=== PATIENT | female | born 1960 | race Caucasian/White ===

== ENCOUNTER 2016-02-29 06:59 | Day surgery (SDC) | payer BC ==
[2016-02-29] MEDS ORDERED: DEXAMETHASONE PRESERVATIVE FREE 10MG/ML VIAL IV ONE (09:39)
[2016-02-29] MEDS ORDERED: BUPIVACAINE 0.25% MPF 30ML VIAL IVP ONE (09:39)
[2016-02-29] MEDS ORDERED: LIDOCAINE 1% W/EPI 1:200,000 MPF 30ML SQ ONE (09:39)
[2016-02-29] MEDS ORDERED: BUPIVACAINE 0.5% W/EPI MPF 30 ML VIAL IVP ONE (09:39)
[2016-02-29] MEDS ORDERED: FENTANYL PF 100MCG/2ML VIAL IV ONE (13:19)
[2016-02-29] MEDS ORDERED: MIDAZOLAM HCL 2MG/2ML VIAL IV ONE (13:19)
[2016-02-29] MEDS ORDERED: PROPOFOL 10 MG/ML VIAL IV ONE (13:19)
[2016-02-29] MEDS ORDERED: LIDOCAINE 2% MDV (20MG/ML) 20ML VIAL IV ONE (13:19)
[2016-02-29] MEDS ORDERED: KETAMINE HCL 10 MG/ML (20ML) VIAL *PACU IV ONE (13:19)
--- NOTE | 2016-02-29 15:55 | Operative Note ---
PAIN SERVICE OPERATIVE REPORT DATE OF PROCEDURE: 02/29/2016. SURGEON: Freddie Ferguson D.O. PREOPERATIVE DIAGNOSIS: LUMBAR RADICULITIS, ICD10 CODE M54.16 AND M54.17. PROCEDURE: Fluoroscopically guided bilateral lumbar epidural injection at L4-5. ANESTHESIA: Local sedation. ANESTHESIA PROVIDER: Rl Zapata CRNA. INDICATIONS: This patient presents with pain which is back and legs. Examination showed tenderness in the lumbar spine. Range of motion causes pain to the outside and front of both legs. Diagnostics show both a 4-5 and 5-1 disc , but 4-5 would seem to be the pattern of pain. DESCRIPTION OF PROCEDURE: Intravenous line, vital sign monitoring, intravenous sedation. Prepped and draped with sterile technique. Under imaging, the epidural interspace at L4-5 was marked. The skin was infiltrated. Two separate 17-gauge, 6-inch Tuohy needles, one left and one right of midline. Contrast epidurogram showed flow characteristics equal and extensive on the left and then equal flow characteristics and extensive right. A total of 5.0 mL of 0.125% Marcaine with dexamethasone was injected, first left and then right. Both needles were removed. The back was cleaned, topical antibiotic and sterile dressing were applied. We will monitor and evaluate. Freddie Ferguson D.O. Date Time JOB NUMBER: [id number] cc: Dr. Rao GAVIN
== END 2016-02-29 08:56 | disposition home or self-care (01) ==
LOC: SUR 06:59
PROVIDERS: ATTEND Pain Medicine Interventional Pain Medicine
DX: M54.16 Radiculopathy, lumbar region (principal); M54.17 Radiculopathy, lumbosacral region; E03.9 Hypothyroidism, unspecified; I10 Essential (primary) hypertension; D64.9 Anemia, unspecified
CPT/HCPCS: 62322; 01992; Q9967; J1100; J3010

== ENCOUNTER 2016-04-25 07:03 | Day surgery (SDC) | payer BC ==
[2016-04-25] MEDS ORDERED: BUPIVACAINE 0.5% W/EPI MPF 30 ML VIAL IVP ONE (11:16)
[2016-04-25] MEDS ORDERED: DEXAMETHASONE PRESERVATIVE FREE 10MG/ML VIAL IV ONE (11:16)
[2016-04-25] MEDS ORDERED: LIDOCAINE 1% W/EPI 1:200,000 MPF 30ML SQ ONE (11:16)
[2016-04-25] MEDS ORDERED: 0.9 % SODIUM CHLORIDE 100ML BAG IV ONE (11:16)
[2016-04-25] MEDS ORDERED: BUPIVACAINE 0.25% MPF 30ML VIAL IVP ONE (11:16)
[2016-04-25] MEDS ORDERED: MIDAZOLAM HCL 2MG/2ML VIAL IV ONE (14:00)
[2016-04-25] MEDS ORDERED: FENTANYL PF 100MCG/2ML VIAL IV ONE (14:00)
[2016-04-25] MEDS ORDERED: PROPOFOL 10 MG/ML VIAL IV ONE (14:00)
[2016-04-25] MEDS ORDERED: LIDOCAINE 2% MDV (20MG/ML) 20ML VIAL IV ONE (14:00)
--- NOTE | 2016-05-01 18:10 | Operative Note ---
Dictator requests prior report to have copies sent to Dr. Rao Mejias. DO ROMAINE Julio
--- NOTE | 2016-05-03 18:50 | Operative Note ---
DATE OF SURGERY: 04/25/2016 PREOPERATIVE DIAGNOSIS: Lumbar radiculitis, ICD10 code M54.16, M54.17. OPERATION: Fluoroscopic-guided bilateral lumbar epidural injection at L4-5 with epidural. Indication: This patient presents with pain which is bilateral low back, hip, and leg. Her diagnostics do show a 4-5 and a 5-1 disk. The current pattern reflects the 4-5 surgery. PROCEDURE: Intravenous line, vital sign monitoring, IV sedation by Anesthesia. The patient positioned prone. Sterile prep, sterile technique. Under imaging, the epidural interspace at L4-5 marked bilaterally. Skin infiltrated. Two separate 17 gauge Tuohy needles with loss of resistance, one left and one at midline, 5 mL plain with 0.25% Marcaine dexamethasone injected. Needle removed. Back cleaned. Topical on buttocks. Sterile dressing applied. We will monitor and evaluate. Freddie Ferguson DO CC: Dr. Nicole GAVIN
== END 2016-04-25 09:00 | disposition home or self-care (01) ==
LOC: SUR 07:03
PROVIDERS: ATTEND Pain Medicine Interventional Pain Medicine
DX: M54.16 Radiculopathy, lumbar region (principal); M54.17 Radiculopathy, lumbosacral region; I10 Essential (primary) hypertension; E03.9 Hypothyroidism, unspecified
CPT/HCPCS: 62323; 01992; Q9967; J1100; J3010

== ENCOUNTER 2017-01-30 07:35 | Day surgery (SDC) | payer BC ==
[2017-01-30] MEDS ORDERED: MIDAZOLAM HCL 2MG/2ML VIAL IV ONE (07:36)
[2017-01-30] MEDS ORDERED: FENTANYL PF 100MCG/2ML VIAL IV ONE (07:36)
[2017-01-30] MEDS ORDERED: PROPOFOL 10 MG/ML VIAL IV ONE (07:36)
[2017-01-30] MEDS ORDERED: LIDOCAINE 1% W/EPI 1:200,000 MPF 30ML SQ ONE (07:36)
[2017-01-30] MEDS ORDERED: 0.9 % SODIUM CHLORIDE 10 ML VIAL IVP ONE (07:36)
[2017-01-30] MEDS ORDERED: LIDOCAINE 2% MDV (20MG/ML) 20ML VIAL IV ONE (07:36)
[2017-01-30] MEDS ORDERED: BUPIVACAINE 0.25% MPF 30ML VIAL IVP ONE (07:36)
[2017-01-30] MEDS ORDERED: DEXAMETHASONE PRESERVATIVE FREE 10MG/ML VIAL IV ONE (07:36)
[2017-01-30] MEDS ORDERED: BUPIVACAINE 0.75% W/EPI MPF 30ML VIAL IVP ONE (07:36)
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
== END 2017-01-30 09:30 | disposition home or self-care (01) ==
LOC: SUR 07:35
PROVIDERS: ATTEND Pain Medicine Interventional Pain Medicine
DX: M54.16 Radiculopathy, lumbar region (principal); M54.17 Radiculopathy, lumbosacral region; E03.9 Hypothyroidism, unspecified; I10 Essential (primary) hypertension
CPT/HCPCS: 62323; 01936; J1100; J3010; J3490

== ENCOUNTER 2017-05-01 06:59 | Day surgery (SDC) | payer BC ==
[2017-05-01] MEDS ORDERED: LIDOCAINE 1% W/EPI 1:200,000 MPF 30ML SQ ONE (07:00)
[2017-05-01] MEDS ORDERED: BUPIVACAINE 0.5% W/EPI MPF 30 ML VIAL IVP ONE (07:00)
[2017-05-01] MEDS ORDERED: LIDOCAINE 2% MDV (20MG/ML) 20ML VIAL IV ONE (07:00)
[2017-05-01] MEDS ORDERED: MIDAZOLAM HCL 2MG/2ML VIAL IV ONE (07:00)
[2017-05-01] MEDS ORDERED: FENTANYL PF 100MCG/2ML VIAL IV ONE (07:00)
[2017-05-01] MEDS ORDERED: HYDROCODONE/APAP 7.5/325MG TABLET PO ONE (07:00)
[2017-05-01] MEDS ORDERED: DEXAMETHASONE PRESERVATIVE FREE 10MG/ML VIAL IV ONE (07:00)
[2017-05-01] MEDS ORDERED: BUPIVACAINE 0.25% MPF 30ML VIAL IVP ONE (07:00)
--- NOTE | 2017-05-01 19:26 | Operative Note - Ferro ---
DATE OF SURGERY: 05/01/17 PREOPERATIVE DIAGNOSIS: LUMBAR RADICULOPATHY, ICD-10 CODE = M54.16. SURGERY: FLUOROSCOPIC-GUIDED BILATERAL LUMBAR EPIDURAL INJECTION L4-5. SURGEON: BRUCE SOFIA D.O. ANESTHESIA: LOCAL SEDATION. ANESTHESIA PROVIDER: MARIA ALEJANDRA PETERS CRNA INDICATIONS: This patient presents with pain, which starts in the back but then extends into the hips and legs. The diagnostic studies do confirm disc abnormalities at both 4-5 and 5-1. The current pattern of pain appears to be more of 4-5. SURGERY: Intravenous line, vital sign monitoring, IV sedation, prepped and draped, sterile technique. Under imaging, the epidural interspace at L4-5 was marked and infiltrated. Two separate #17 gauge Tuohy needles, one left and one right of the midline. 5 mL of 0.125% Marcaine with Dexamethasone injected, first left and then right. Both needles removed. Back cleaned. Topical antibiotic. Sterile dressing applied. We will monitor and evaluate. cc: Dr. De La Cruz JOB NUMBER: [id number] MTDD
== END 2017-05-01 08:55 | disposition home or self-care (01) ==
LOC: SUR 06:59
PROVIDERS: ATTEND Pain Medicine Interventional Pain Medicine
DX: M54.16 Radiculopathy, lumbar region (principal); I10 Essential (primary) hypertension; D64.9 Anemia, unspecified
CPT/HCPCS: 62323; 01936; Q9967; J1100; J3010

== ENCOUNTER → 2017-12-04 | Day surgery (SDC) | payer BC ==
[~2017-12-04] MED LIST: 0.9 % SODIUM CHLORIDE 10 ML VIAL IVP ONE; BUPIVACAINE 0.25% W/EPI MPF 30ML VIAL IVP ONE; BUPIVACAINE 0.5% W/EPI MPF 30 ML VIAL IVP ONE; DEXAMETHASONE PRESERVATIVE FREE 10MG/ML VIAL IV ONE; FENTANYL PF 100MCG/2ML VIAL IV ONE; LIDOCAINE 1% W/EPI 1:200,000 MPF 30ML SQ ONE; LIDOCAINE 2% MDV (20MG/ML) 20ML VIAL IV ONE; MIDAZOLAM HCL 2MG/2ML VIAL IV ONE; OXYCODONE/APAP 10MG-325MG TABLET PO ONE; PROPOFOL 10 MG/ML VIAL IV ONE
--- NOTE | 2017-12-04 21:36 | Operative Note ---
DATE OF SURGERY: 12/04/2017 PREOPERATIVE DIAGNOSIS: LUMBAR RADICULOPATHY, ICD-10 CODE = M54.16 AND M54.17. SURGERY: FLUOROSCOPIC-GUIDED BILATERAL LUMBAR EPIDURAL INJECTION L4-5. SURGEON: BRUCE SOFIA D.O. PRIMARY CARE PHYSICIAN: DR. LYNNE CEDENO ANESTHESIA: LOCAL SEDATION. ANESTHESIA PROVIDER: RIO SIMON INDICATIONS: This patient presents with pain, which starts in the back but extends into the hips and legs bilaterally. Diagnostics show the discs at 4-5 and 5-1. SURGERY: Intravenous line, vital sign monitoring, IV sedation, prepped and draped, sterile technique. Consistent with the pattern of pain to the outer front surface of both legs, the epidural interspace at L4-5 marked, infiltrated. Two separate #18 gauge Tuohy needles, one left and one right of the midline. 5 mL of 0.125% Marcaine with Dexamethasone injected, first left then right. Both needles removed. Back cleaned. Topical antibiotic. Sterile dressing applied. We will monitor and evaluate. cc: Dr. Lynne Cedeno JOB NUMBER: [id number] MTDD
== END | disposition home or self-care (01) ==
LOC: SUR 06:51
PROVIDERS: ATTEND Pain Medicine Interventional Pain Medicine
DX: M54.16 Radiculopathy, lumbar region (principal); M54.17 Radiculopathy, lumbosacral region; E03.9 Hypothyroidism, unspecified
CPT/HCPCS: 62323; 01936; J1100; J3010

== ENCOUNTER 2018-02-12 06:21 | Day surgery (SDC) | payer BC ==
[2018-02-12] MEDS ORDERED: DEXAMETHASONE PRESERVATIVE FREE 10MG/ML VIAL IV ONE (06:22)
[2018-02-12] MEDS ORDERED: LIDOCAINE 1% W/EPI 1:200,000 MPF 30ML SQ ONE (06:22)
[2018-02-12] MEDS ORDERED: PROPOFOL 10 MG/ML VIAL IV ONE (06:22)
[2018-02-12] MEDS ORDERED: BUPIVACAINE 0.25% MPF 30ML VIAL IVP ONE (06:22)
[2018-02-12] MEDS ORDERED: MIDAZOLAM HCL 2MG/2ML VIAL IV ONE (06:22)
[2018-02-12] MEDS ORDERED: BUPIVACAINE 0.5% W/EPI MPF 30 ML VIAL IVP ONE (06:22)
[2018-02-12] MEDS ORDERED: 0.9 % SODIUM CHLORIDE 10 ML VIAL IVP ONE (06:22)
[2018-02-12] MEDS ORDERED: FENTANYL PF 100MCG/2ML VIAL IV ONE (06:22)
--- NOTE | 2018-02-12 12:21 | Operative Note ---
DATE OF SURGERY: 02/12/2018 PREOPERATIVE DIAGNOSIS: LUMBAR RADICULOPATHY, ICD-10 CODE = M54.16 AND M54.17. SURGERY: FLUOROSCOPIC-GUIDED BILATERAL LUMBAR EPIDURAL INJECTION L5-S1. SURGEON: BRUCE SOFIA D.O. ANESTHESIA: LOCAL SEDATION. RAVEN HUNTER CRNA. INDICATIONS: This patient presents with a history of pain, which is low back, hip and leg bilateral. Diagnostics do show diffuse disc abnormalities and spondylitic change at discs 4-5 and 5-1. The pattern of pain is 5-1. SURGERY: Intravenous line, vital sign monitoring, IV sedation, prepped and draped, sterile technique, under imaging, the epidural interspace at L5-S1 identified and marked bilaterally. Skin infiltrated. Two separate #17 gauge, five-inch Tuohy needles, one left and one right of the midline. 5 mL of 0.125% Marcaine with Dexamethasone injected. Needle removed. Back cleaned. Topical antibiotic. Sterile dressing was applied. We will monitor and evaluate. cc: Dr. Eliel Cedeno JOB NUMBER: [id number] MTDD
== END 2018-02-12 08:25 | disposition home or self-care (01) ==
LOC: SUR 06:21
PROVIDERS: ATTEND Pain Medicine Interventional Pain Medicine
DX: M54.16 Radiculopathy, lumbar region (principal); M54.17 Radiculopathy, lumbosacral region; E03.9 Hypothyroidism, unspecified; G89.29 Other chronic pain
CPT/HCPCS: 62323; 01992; Q9967; J1100; J3010

== ENCOUNTER 2018-04-02 06:19 | Day surgery (SDC) | payer BC ==
[2018-04-02] MEDS ORDERED: DEXAMETHASONE PRESERVATIVE FREE 10MG/ML VIAL IV ONE (06:20)
[2018-04-02] MEDS ORDERED: BUPIVACAINE 0.5% W/EPI MPF 30 ML VIAL IVP ONE (06:20)
[2018-04-02] MEDS ORDERED: LIDOCAINE 1% W/EPI 1:200,000 MPF 30ML SQ ONE (06:20)
[2018-04-02] MEDS ORDERED: LIDOCAINE 2% MDV (20MG/ML) 20ML VIAL IV ONE (06:20)
[2018-04-02] MEDS ORDERED: 0.9 % SODIUM CHLORIDE 10 ML VIAL IVP ONE (06:20)
[2018-04-02] MEDS ORDERED: PROPOFOL 10 MG/ML VIAL IV ONE (06:20)
[2018-04-02] MEDS ORDERED: FENTANYL PF 100MCG/2ML VIAL IV ONE (06:20)
[2018-04-02] MEDS ORDERED: MIDAZOLAM HCL 2MG/2ML VIAL IV ONE (06:20)
[2018-04-02] MEDS ORDERED: BUPIVACAINE 0.25% MPF 30ML VIAL IVP ONE (06:20)
[2018-04-02] MEDS ORDERED: HYDROCODONE/APAP 7.5/325MG TABLET PO ONE (06:20)
--- NOTE | 2018-04-02 16:28 | Operative Note - Ferro ---
DATE OF SURGERY: 04/02/18 PREOPERATIVE DIAGNOSIS: LEFT LUMBAR RADICULOPATHY, ICD-10 CODE = M54.16 AND M54.17. OPERATION: FLUOROSCOPICALLY-GUIDED LEFT TRANSFORAMINAL SELECTIVE SEGMENTAL EPIDURAL INJECTION L4-5 AND L5-S1. SURGEON: BRUCE SOFIA D.O. ANESTHESIA: LOCAL SEDATION. ANESTHESIA PROVIDER: MARIA ALEJANDRA PETERS CRNA INDICATION: This patient presents with history of a post-traumatic left lumbar radiculopathy. Diagnostics show hardware pelvis, hip, and left ankle. PROCEDURE: Intravenous line, vital sign monitoring, IV sedation, prepped and draped in sterile technique. Lumbar foraminal opening at 4-5 and 5-1 consistent with pattern of pain on the left were marked and infiltrated. Two separate 20- gauge Chibas one to each foraminal opening. 5 mL of 0.125% Marcaine with Dexamethasone injected. Needle removed. Back cleaned. Topical antibiotics. Sterile dressing applied. We will monitor and evaluate. cc: Dr. Cedeno JOB NUMBER: [id number] MTDD
== END 2018-04-02 08:58 | disposition home or self-care (01) ==
LOC: SUR 06:19
PROVIDERS: ATTEND Pain Medicine Interventional Pain Medicine
DX: M54.16 Radiculopathy, lumbar region (principal); M54.17 Radiculopathy, lumbosacral region; I10 Essential (primary) hypertension; G89.29 Other chronic pain
CPT/HCPCS: 62323; 01992; Q9967; J1100; J3010

== ENCOUNTER 2018-08-06 10:19 | Day surgery (SDC) | payer BC ==
[~2018-08-06 10:19] MED LIST changes: -0.9 % SODIUM CHLORIDE 10 ML VIAL IVP ONE; +ACETAMINOPHEN 1,000 MG/100 ML BTL IV ONE; +ACETAMINOPHEN 1,000 MG/100 ML BTL IVPB ONE; -BUPIVACAINE 0.25% W/EPI MPF 30ML VIAL IVP ONE; -BUPIVACAINE 0.5% W/EPI MPF 30 ML VIAL IVP ONE; +CEFAZOLIN 2 Gram 2 GM/50 ML BAG IVPB ONE; -DEXAMETHASONE PRESERVATIVE FREE 10MG/ML VIAL IV ONE; +FAMOTIDINE 20MG TABLET PO ONE; -FENTANYL PF 100MCG/2ML VIAL IV ONE; +HYDROMORPHONE PF 2MG/ML AMP 0.008 MG in 0.9 % SODIUM CHLORIDE 10ML VIA 0.996 ML IV ONE; +HYDROMORPHONE PF 2MG/ML AMP 8 MG in 0.9 % SODIUM CHLORIDE 500ML 496 ML IV ONE; -LIDOCAINE 1% W/EPI 1:200,000 MPF 30ML SQ ONE; -LIDOCAINE 2% MDV (20MG/ML) 20ML VIAL IV ONE; +MECLIZINE 25 MG TABLET PO ONE; +METOCLOPRAMIDE 10 MG TABLET PO ONE; -MIDAZOLAM HCL 2MG/2ML VIAL IV ONE; -OXYCODONE/APAP 10MG-325MG TABLET PO ONE; -PROPOFOL 10 MG/ML VIAL IV ONE
[2018-08-06] MEDS ORDERED: FENTANYL PF 100MCG/2ML VIAL IV ONE (10:20)
[2018-08-06] MEDS ORDERED: MIDAZOLAM HCL 2MG/2ML VIAL IV ONE (10:20)
[2018-08-06] MEDS ORDERED: KETAMINE HCL 100MG/1ML VIAL INJ ONE (10:20)
[2018-08-06] MEDS ORDERED: PROPOFOL 10 MG/ML VIAL IV ONE (10:20)
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
[2018-08-06] MEDS ORDERED: BUPIVACAINE 0.5% W/EPI MPF 30 ML VIAL SQ ONE ×2 (12:48)
[2018-08-06] MEDS ORDERED: RINGERS SOLUTION,LACTATED 1,000 ML IV ONE ×3 (12:48→14:21)
[2018-08-06] MEDS ORDERED: LIDOCAINE 1% W/EPI 1:100,000 MDV 20 ML VIAL SQ ONE ×2 (12:48)
[2018-08-06] MEDS ORDERED: FENTANYL PF 100MCG/2ML VIAL IVP ONE (14:26)
[2018-08-06] MEDS ORDERED: TEMAZEPAM 15 MG CAPSULE PO PRN ×2 (14:45)
[2018-08-06] MEDS ORDERED: SENNOSIDES/DOCUSATE SODIUM UD CAPSULE PO PRN ×2 (14:45)
[2018-08-06] MEDS ORDERED: ACETAMINOPHEN 325 MG TAB PO PRN ×2 (14:45)
[2018-08-06] MEDS ORDERED: DIPHENHYDRAMINE HCL 50 MG/ML VIAL IVP PRN ×2 (14:45)
[2018-08-06] MEDS ORDERED: OXYCODONE/APAP 10MG-325MG TABLET PO PRN (14:45)
[2018-08-06] MEDS ORDERED: HYDROMORPHONE HCL 2 MG/ML VIAL IM PRN (14:45)
[2018-08-06] MEDS ORDERED: METOCLOPRAMIDE HCL 10 MG/2 ML VIAL IVP PRN (14:45)
[2018-08-06] MEDS ORDERED: METOCLOPRAMIDE 10 MG TABLET PO PRN (14:45)
[2018-08-06] MEDS ORDERED: HYDROCODONE/APAP 7.5/325MG TABLET PO PRN ×2 (14:45)
[2018-08-06] MEDS ORDERED: DIPHENHYDRAMINE HCL 25 MG CAPSULE PO PRN ×2 (14:45)
[2018-08-06] MEDS ORDERED: NALOXONE 0.4 MG/1 ML VIAL IVP PRN (14:45)
[2018-08-06] MEDS ORDERED: AL HYDROX/MAG HYDROX 30ML UD PO PRN (14:45)
[2018-08-06] MEDS ORDERED: TIZANIDINE HCL 4 MG TABLET PO PRN ×2 (14:53→14:54)
[2018-08-06] MEDS ORDERED: ZOLPIDEM TARTRATE 5 MG TABLET PO PRN (14:55)
[2018-08-06] MEDS ORDERED: OXYBUTYNIN CHLORIDE 5MG TABLET PO SCH ×2 (16:45→19:15)
[2018-08-06] MEDS: OXYCODONE/APAP 10MG-325MG TABLET PO PRN (19:05)
[2018-08-06] MEDS: HYDROMORPHONE HCL 2 MG/ML VIAL IM PRN (21:16)
[2018-08-06] MEDS: CEFAZOLIN 1G VIAL IVP SCH (21:17)
[2018-08-06] MEDS ORDERED: AMITRIPTYLINE 25 MG TABLET PO SCH (22:00)
[2018-08-07] MEDS: HYDROMORPHONE HCL 2 MG/ML VIAL IM PRN (02:08)
[2018-08-07] MEDS: CEFAZOLIN 1G VIAL IVP SCH (05:34)
[2018-08-07] MEDS ORDERED: LEVOTHYROXINE SODIUM 75 MCG TABLET PO SCH (07:00)
[2018-08-07] MEDS: RINGERS SOLUTION,LACTATED 1,000 ML IV SCH ×2 (07:44→07:45)
[2018-08-07] MEDS: OXYCODONE/APAP 10MG-325MG TABLET PO PRN (08:19)
[2018-08-07] MEDS ORDERED: PROPRANOLOL HCL 10 MG TABLET PO SCH (10:00)
--- NOTE | 2018-08-07 12:20 | Operative Note ---
DATE OF SURGERY: 08/06/2018 PREOPERATIVE DIAGNOSIS: Lumbar radiculopathy, ICD10 code M54.16 and M54.17. OPERATION: 1. Fluoroscopic-guided access to spinal space at L3-4, placement of thin-walled spinal catheter T12. 2. Diagnostic myelography with radiologic supervision and interpretation. 3. Bolus hydromorphone spinal space 0.005 mg. 4. Incision and subcutaneous dissection and anchoring of spinal catheter to supraspinous fascia with anchoring device and nonabsorbable suture. 5. Incision and subcutaneous dissection and creation of subcutaneous pouch at left flank for placement pump identified as a Urbfultronic 20 mL programmable should the trial succeed. 7. Tunneling midline spinal catheter into flank pouch, interface spinal catheter with second catheter component by way of connector, tunneling second catheter component 6 cm superior exiting skin. 8. Interface external catheter to external pump set to deliver hydromorphone at 0.12 mg a day. 9. Closure of midline incision 2-0 fascia, running nylon skin. Closure of left flank pouch running nylon. 10. Epidural blood patch 20 mL autologous blood, sterile technique, left antecubital at L4-5 after midline access epidural space 18-guage Tuohy needle with loss of resistance. 11. Placement of dressings over incisions and securing spinal catheter with all connections under sterile dressing. SURGEON: Freddie Ferguson, ANESTHESIA: Local with sedation. ANESTHESIA PROVIDER: Rl Zapata INDICATION: This patient presents with a history of intractable lumbar radiculopathy. Due to the failure of therapy, she is here for an implanted spinal catheter infusion trial with hydromorphone to determine if the implantation of a permanent system can be of any value in pain control. PROCEDURE: Intravenous line, vital signs monitoring, IV sedation. Prepped and draped in sterile technique. Patient positioned prone. Sterile prep, sterile technique. Under imaging, the spinal interspace at L3-4 was marked, infiltrated. A spinal needle paramedian approach bevel at long axis under imaging AP and lateral was placed into the spinal space. With CSF flow, a thin-walled spinal catheter was advanced, positioned T12. Diagnostic myelography was performed under imaging. The resulting flow characteristics were appropriate for the space confirming midline approach. With this kind of information, a bolus of hydromorphone to the spinal space 0.005 mg was given. The skin above and below the needle infiltrated, incision made, and subcutaneous dissection was conducted to form a pouch. The needle was removed. A pursestring suture was placed around the spinal catheter entry point to stop CSF leak. An anchoring device was then used to secure the catheter to the supraspinous fascia with a nonabsorbable suture. At the left flank ultimately a site for the pump, most probably a Medtronic 20 mL programmable, skin infiltrated. Subcutaneous dissection was performed creating a small subcutaneous pouch. The spinal catheter was then tunneled into the pouch, in the pouch interfaced with a second catheter component by way of a connector. This second catheter component was tunneled 6 cm from this pouch superior exiting the skin. The external catheter was then interfaced to an external pump which was set to deliver hydromorphone at 0.12 mg a day. The left flank pouch was closed with a running nylon. The midline pouch was closed using Vicryl for fascia and a running nylon for skin. The epidural interspace at L4-5 one level below dural puncture luz infiltrated with an 18- gauge Tuohy needle with loss of resistance was used to gain entry to the space. Simultaneously, 20 mL autologous blood drawn sterile technique from the left antecubital. The left antecubital placed onto the field. An epidural blood patch was then performed with this blood at this level. The epidural needle was removed. Dressings were placed over the incisions and securing the catheter under the dressings so that all catheter components and interface were under sterile dressing. She was then transported to the recovery room flat, pillow under head and knees. The pump had been programmed to deliver by continuous infusion hydromorphone at 0.12 mg a day. She was stable. There was full functionality of extremities. There was nothing different or unusual in her pain pattern. She was monitored until stable, transported to the floor where she will be kept flat for 4, slowly elevated for 1, and then monitored overnight for observation. In the morning she will be discharged. DISCHARGE INSTRUCTIONS: 1. Sites to remain clean and dry. No showering or bathing in any way that would disrupt dressings. If it happens, contact the clinic. 2. Standard medications resumed including the antibiotic Levaquin 500 mg once a day for 14 days. 3. The trial will run a total of 14 days. During this time, 3 increases in the office will be set up. Her first increase within the next 3 days. At the end of the trial period, we will either implant the full device or remove the implanted catheter. The potential side effects from spinal opioid of respiratory depression, nausea, vomiting, constipation, urinary retention, lightheadedness, or rash have all been discussed and reviewed. She was monitored and then transported to the room for observation. CC: Dr. Ceasar GAVIN
--- NOTE | 2018-08-08 12:28 | RADIOLOGY REPORT ---
STUDY: Spine 1 view. CLINICAL HISTORY: Pain pump trial. TECHNIQUE: Single AP portable supine view of the lower thoracic and lumbar portions of the spine obtained. COMPARISON: None. FINDINGS: There are 5 nonweightbearing lumbar-type vertebrae. Minor dextrocurvature of the lumbar spine centered at the L3-L4 level. Multilevel degenerative disc and facet degenerative changes are present, primarily mild in degree. An intraspinal catheter is in place, likely entering the spinal canal at the L3-L4 level with its tip at the T12-L1 level. Fixation hardware is demonstrated within the inferior left iliac bone, incompletely imaged. IMPRESSION: Intraspinal catheter in place with its tip at the T12-L1 level. MTDD
== END 2018-08-07 09:09 | disposition home or self-care (01) ==
LOC: SUR 10:19 → MEDSURG 14:47 → SUR 08-07 09:09
PROVIDERS: ATTEND Pain Medicine Interventional Pain Medicine
DX: M54.16 Radiculopathy, lumbar region (principal); M54.17 Radiculopathy, lumbosacral region; I10 Essential (primary) hypertension; E11.9 Type 2 diabetes mellitus without complications
CPT/HCPCS: 62350; 62362; 62273; 01936; 85002; 72020; Q9967; J3490 ×2; J3010; J1170 ×3; J0690; J7040; J7120

== ENCOUNTER 2018-08-20 10:16 | Day surgery (SDC) | payer BC ==
--- NOTE | 2018-08-20 06:45 | History and Physical - Ferro ---
CHIEF COMPLAINT/HISTORY OF CHIEF COMPLAINT: This patient presents with an ongoing implanted spinal catheter infusion trial of Hydromorphone. During the trial she developed almost immediately peripheral edema with subsequent increases of the peripheral edema significantly worsened. The infusion was slowly titrated down and she is here for removal of the implanted catheter from the unsuccessful trial. She is sensitive to Fentanyl so the Fentanyl Bupivacaine combination would not be an option. Morphine has a higher incident of side effects than the Hydromorphone. PAST MEDICAL HISTORY: Unchanged. PAST SURGICAL HISTORY: Unchanged. MEDICATIONS ON ADMISSION: Unchanged. ALLERGIES: CODEINE AND ULTRAM. FAMILY/PSYCHOSOCIAL HISTORY: Social history - Unchanged. SYSTEMS REVIEW: The patient is appropriate in no acute distress. PHYSICAL EXAMINATION: Height is 5'1", weight is 150. No vital signs. Examination shows the dressings for the implanted catheter trial to be intact. The external pump is in place and off. The underlying pain pattern is lumbar radiculopathy, no changes. IMPRESSION: 1. INTRACTABLE LUMBAR RADICULOPATHY, ICD-10 CODE M54.16 AND M54.17. 2. IMPLANTED SPINAL CATHETER INFUSION TRIAL WITH HYDROMORPHONE, UNSUCCESSFUL. PLAN: The patient is here for removal of the implanted catheter from the unsuccessful trial due to side effects and complications. The procedure will be considered outpatient. JOB NUMBER: [id number] MTDD
[~2018-08-20 10:16] MED LIST changes: -ACETAMINOPHEN 1,000 MG/100 ML BTL IV ONE; -HYDROMORPHONE PF 2MG/ML AMP 8 MG in 0.9 % SODIUM CHLORIDE 500ML 496 ML IV ONE
[2018-08-20] MEDS ORDERED: KETAMINE HCL 100MG/1ML VIAL INJ ONE (10:17)
[2018-08-20] MEDS ORDERED: FENTANYL PF 100MCG/2ML VIAL IV ONE (10:17)
[2018-08-20] MEDS ORDERED: MIDAZOLAM HCL 2MG/2ML VIAL IV ONE (10:17)
[2018-08-20] MEDS ORDERED: LIDOCAINE 2% MDV (20MG/ML) 20ML VIAL IV ONE (10:17)
[2018-08-20] MEDS ORDERED: PROPOFOL 10 MG/ML VIAL IV ONE (10:17)
[2018-08-20] MEDS ORDERED: DIPHENHYDRAMINE HCL 50 MG/ML VIAL IVP ONE (10:17)
[2018-08-20] MEDS ORDERED: FAMOTIDINE 20MG TABLET PO ONE (11:25)
[2018-08-20] MEDS ORDERED: MECLIZINE 25 MG TABLET PO ONE (11:25)
[2018-08-20] MEDS ORDERED: METOCLOPRAMIDE 10 MG TABLET PO ONE (11:25)
[2018-08-20] MEDS ORDERED: RINGERS SOLUTION,LACTATED 1,000 ML IV ONE (12:52)
[2018-08-20] MEDS ORDERED: BUPIVACAINE 0.5% W/EPI MPF 30 ML VIAL SQ ONE (13:05)
[2018-08-20] MEDS ORDERED: LIDOCAINE 1% W/EPI 1:200,000 MPF 30ML SQ ONE (13:05)
[2018-08-20] MEDS ORDERED: FENTANYL PF 100MCG/2ML VIAL ONE (13:44)
[2018-08-20] MEDS ORDERED: FENTANYL PF 100MCG/2ML VIAL IVP ONE (13:47)
[2018-08-20] MEDS ORDERED: OXYCODONE/APAP 10MG-325MG TABLET PO ONE (13:47)
[2018-08-20] MEDS: FENTANYL PF 100MCG/2ML VIAL IVP ONE ×2 (13:48→14:05)
--- NOTE | 2018-08-22 09:00 | Operative Note ---
DATE OF SURGERY: 08/20/2018 PREOPERATIVE DIAGNOSES: 1. Lumbar radiculopathy, ICD10 code M54.16 and M54.17. 2. Implanted spinal catheter infusion trial hydromorphone unsuccessful. OPERATION: Fluoroscopic-guided incision and subcutaneous dissection and removal of implanted spinal catheter. SURGEON: Freddie Ferguson DO ANESTHESIA: Local with sedation. ANESTHESIA PROVIDER: Yanni Briceño INDICATION: This patient presents with a history of intractable lumbar radiculopathy. Due to the failure of therapies, an implanted spinal catheter infusion trial hydromorphone was conducted. Almost immediately at slightly above the starting dose, the patient developed significant peripheral edema. An increase was performed x1 with even more dramatic peripheral edema. The infusion as slowly titrated down to the starting point with improvement in the peripheral edema, which linked the spinal infusion with the side effect. At that point, it was decided because of her other sensitivities to fentanyl which is one of the options to the spinal Dilaudid and the likelihood that morphine spinally would produce more side effects than the current Dilaudid, it was decided to terminate the trial. This was a collective decision. PROCEDURE: Intravenous line, vital sign monitoring, IV sedation by Anesthesia. Patient positioned prone. Sterile prep, sterile technique. Under imaging, the incision for the spinal catheter infiltrated, incision made, and subcutaneous dissection was conducted to the supraspinous fascia and the anchor for the spinal catheter. The anchor was cut. A pursestring suture placed and the spinal catheter was removed intact. The radiopaque end of the catheter identified. Imaging confirmed. At the left posterior gluteal margin, an intermediate pouch for the interface between internal and external catheter was infiltrated. Incision made and subcutaneous dissection conducted. The connection between the 2 catheter components was cut and the external catheter was removed by pulling away from the incision. The internal component was then removed. Under imaging, all catheter segments removed. Antibiotic irrigation and Bovie for hemostasis. The midline incision and flank incision were closed with Stratafix suture for fascia and 2-0 and 3-0 Stratafix for skin. Dermabond closure was placed. She was transported to the recovery room stable. There were no side effects from the procedure or sedation. DISCHARGE INSTRUCTIONS: 1. Sites to remain clean and dry. No showering or bathing in any way that would disrupt dressings. If it happens, contact the clinic. 2. Standard medications resume including the antibiotic Levaquin. She will continue for another 7 days until she is seen in the office. At that point, at the office evaluation, the antibiotic will be discontinued. Her activities should stay low for the next 5-7 days or until she comes in to evaluate the sites. All other instructions provided, numbers to contact if problems given. She was then discharged. ROMAINE
== END 2018-08-20 14:35 | disposition home or self-care (01) ==
LOC: SUR 10:16
PROVIDERS: ATTEND Pain Medicine Interventional Pain Medicine
DX: T40.2X5A Adverse effect of other opioids, initial encounter (principal); M54.16 Radiculopathy, lumbar region; M54.17 Radiculopathy, lumbosacral region; I10 Essential (primary) hypertension; D64.9 Anemia, unspecified; R60.9 Edema, unspecified; K21.9 Gastro-esophageal reflux disease without esophagitis; E11.9 Type 2 diabetes mellitus without complications
CPT/HCPCS: 62355; 00300; J3010; J0690; J3490; J1200; J7120